=== PATIENT | male | born 1965 | race African-American/Black ===

== ENCOUNTER 2020-08-02 11:14 | Emergency (ER) | payer SELFPAY ==
[2020-08-02] MEDS ORDERED: Ketorolac Tromethamine 30 MG/ML VIAL ONE (11:40)
[2020-08-02 16:56] LABS: SARS-CoV-2 MS2 Positive; SARS-CoV-2 N Gene Positive; SARS-CoV-2 S Gene Positive; SARS-CoV-2 by NAA DETECTED (NotDetected); SARS-CoV-2 orf1ab Positive
== END 2020-08-02 12:20 | disposition home or self-care (01) ==
LOC: ERS 11:14
DX: U07.1 COVID-19 (principal); F17.290 Nicotine dependence, other tobacco product, uncomplicated
CPT/HCPCS: 87635; 96372; 99284; J1885; U0003